=== PATIENT | male | born 2005 | race Caucasian/White ===

== ENCOUNTER 2023-11-20 07:20 | Emergency (ER) | payer BC, OTHER ==
[~2023-11-20] VITALS: Ht 185.4 cm; Wt 74.0 kg
[2023-11-20 08:10] VITALS: BP 159/92; PULSE 76; RESP 14; TEMP 98.3; O2SAT 97
[2023-11-20] MEDS: ONDANSETRON HCL 4 MG/2 ML VIAL IV ONE (08:26)
[2023-11-20] MEDS: SODIUM CHLORIDE 0.9% 1,000 ML IV ONE (08:26)
[2023-11-20] MEDS: HALOPERIDOL LACTATE 5 MG/ML INJ VIAL IM ONE (08:27)
[2023-11-20] MEDS ORDERED: ZOFR4T PO (09:23)
== END 2023-11-20 09:33 | disposition home or self-care (01) ==
LOC: ER 07:20
DX: R11.15 Cyclical vomiting syndrome unrelated to migraine (principal); R19.7 Diarrhea, unspecified; F12.10 Cannabis abuse, uncomplicated
CPT/HCPCS: 96361; 96372; 96374; 99284; J1630; J2405; J7030

== ENCOUNTER 2023-12-31 12:06 | Inpatient (IN) | payer BC ==
[~2023-12-31] VITALS: Ht 185.4 cm; Wt 77.0 kg
[~2023-12-31 12:06] MED LIST: ZOFR4T PO
[2023-12-31] MEDS: ONDANSETRON ODT 4 MG TAB PO ONE (13:33)
[2023-12-31] MEDS: SODIUM CHLORIDE 0.9% 1,000 ML IV ONE ×2 (13:37→14:48)
[2023-12-31 13:50] LABS: Basophils # (auto) 0.1 10 ^3/uL (0-0.2); Basophils % (auto) 0.4 % (0.0-2.0); Eosinophils # (auto) 0 10 ^3/uL (0-0.8); Eosinophils % (auto) 0.1 % (0.0-7.0); Hematocrit 47.6 % (41.0-53.0); Hemoglobin 16.4 g/dL (13.5-17.5); Lymphocytes # (auto) 1.6 10 ^3/uL (0.4-5.4); Mean Corpuscular Hemoglobin 33.1 pg (28.0-32.0); Mean Corpuscular Hgb Conc. 34.5 g/dL (32.0-36.0); Mean Corpuscular Volume 95.8 fL (80.0-100.0); Monocytes # (auto) 0.8 10 ^3/uL (0-1.3); Monocytes % (auto) 4.4 % (0.0-12.0); Neutrophils # (auto) 15.1 10 ^3/uL (1.6-8.6); Neutrophils % (auto) 86.1 % (37.0-80.0); Platelet Count (auto) 199 10^3/uL (140-450); Red Blood Cells 4.96 10^6/uL (4.5-5.90); Red Cell Distribution Width 12.9 % (11.8-14.3); White Blood Cell 17.5 10^3/uL (4.4-10.8)
[2023-12-31] MEDS: MORPHINE SULFATE 4 MG/ML SYR/VIAL IV ONE (13:50)
[2023-12-31 13:56] LABS: Chloride 110 mmol/L (98-107); Potassium 4.4 mmol/L (3.5-5.1); Sodium 143 mmol/L (136-145)
[2023-12-31 13:57] LABS: Anion Gap 9 (5-15); Calcium 10.8 mg/dL (8.7-10.4); Carbon Dioxide 24 mmol/L (20-30)
[2023-12-31 14:02] LABS: BUN/Creatinine Ratio 10.5 (10.0-20.0); Blood Urea Nitrogen 11 mg/dL (9-23); Glucose 131 mg/dL (74-106)
[2023-12-31 14:05] VITALS: PULSE 61; RESP 14; O2SAT 98
[2023-12-31] MEDS: LACTATED RINGER'S 1,000 ML IV ONE (15:00)
[2023-12-31] MEDS ORDERED: METOCLOPRAMIDE HCL 5MG/ml INJ 2ml VIAL IV PRN (16:30)
[2023-12-31] MEDS ORDERED: ONDANSETRON HCL 4 MG/2 ML VIAL IV PRN (16:30)
[2023-12-31] MEDS ORDERED: DOCUSATE SOD 100 MG CAP PO PRN (16:30)
[2023-12-31] MEDS ORDERED: ACETAMINOPHEN 325 MG TAB PO PRN (16:30)
[2023-12-31] MEDS ORDERED: HYDROmorphone HCL 2 MG/ML VL/or syr IV PRN (16:30)
[2023-12-31] MEDS: HYDROcodone-ACET 5/325MG TAB PO PRN (16:49)
[2023-12-31] MEDS ORDERED: FLUO40CA PO (18:46)
[2023-12-31] MEDS ORDERED: FLUO-470 PO (18:46)
[2023-12-31] MEDS ORDERED: ARIP10TA29 PO (18:46)
[2023-12-31] MEDS ORDERED: GUAN1TAB8 PO (18:51)
[2023-12-31 21:00] VITALS: BP 137/81; PULSE 68; RESP 22; TEMP 97.7; O2SAT 98
[2023-12-31] MEDS: SODIUM CHLOR 0.9% PF (SALINE LOCK) 10ML VIAL/SYR IV SCH (22:00)
[2024-01-01 04:44] LABS: Urine Bacteria None Seen /hpf (None Seen)
[2024-01-01 04:52] LABS: Urine Blood Negative /uL (Negative); Urine Clarity Clear (Clear); Urine Color Light-Yellow (Yellow); Urine Protein, UAD Negative (Negative); Urine Specific Gravity 1.013 (1.001-1.035); Urine Urobilinogen Normal (Negative); Urine WBC 2 /hpf (0 - 3)
[2024-01-01 05:05] LABS: Amphetamine Screen, Urine Neg (NEGATIVE); Barbiturate Scree,Urine Neg (NEGATIVE); Benzodiazephine Screen, Urine Neg (NEGATIVE); Cannabinoid Screen, Urine Pos (NEGATIVE); Cocaine Screen, Urine Neg (NEGATIVE); Opiate Scree,Urine Neg (NEGATIVE); Phencyclidine Screen, Urine Neg (NEGATIVE)
[2024-01-01 05:28] VITALS: BP 128/70; PULSE 73; RESP 18; TEMP 97.8; O2SAT 98
[2024-01-01 09:00] VITALS: BP 130/71; PULSE 66; RESP 18; TEMP 97.8; O2SAT 98
[2024-01-01] MEDS: ENOXAPARIN SOD 40 MG/0.4 ML SYRINGE SC SCH (10:00)
[2024-01-01 12:54] LABS: Basophils # (auto) 0 10 ^3/uL (0-0.2); Basophils % (auto) 0.3 % (0.0-2.0); Eosinophils # (auto) 0.1 10 ^3/uL (0-0.8); Eosinophils % (auto) 1.2 % (0.0-7.0); Hematocrit 44.8 % (41.0-53.0); Hemoglobin 15.5 g/dL (13.5-17.5); Lymphocytes # (auto) 3.2 10 ^3/uL (0.4-5.4); Mean Corpuscular Hemoglobin 33.4 pg (28.0-32.0); Mean Corpuscular Hgb Conc. 34.7 g/dL (32.0-36.0); Mean Corpuscular Volume 96.2 fL (80.0-100.0); Monocytes # (auto) 0.9 10 ^3/uL (0-1.3); Monocytes % (auto) 8.6 % (0.0-12.0); Neutrophils # (auto) 5.8 10 ^3/uL (1.6-8.6); Neutrophils % (auto) 57.9 % (37.0-80.0); Platelet Count (auto) 156 10^3/uL (140-450); Red Blood Cells 4.66 10^6/uL (4.5-5.90)
[2024-01-01 13:00] VITALS: BP 131/78; PULSE 67; RESP 18; TEMP 98.1; O2SAT 97
[2024-01-01 13:15] LABS: Albumin 4.3 g/dL (3.2-4.8); Alkaline Phosphatase 79 U/L (46-116); Anion Gap 6 (5-15); Aspartate Aminotransferase 9 U/L (13-40); BUN/Creatinine Ratio 8.9 (10.0-20.0); Bilirubin, Total 0.5 mg/dL (0.2-1.0); Blood Urea Nitrogen 8 mg/dL (9-23); Calcium 9.6 mg/dL (8.7-10.4); Carbon Dioxide 26 mmol/L (20-30); Chloride 109 mmol/L (98-107); Glucose 94 mg/dL (74-106); Lipase 29 U/L (12-53); Potassium 3.5 mmol/L (3.5-5.1); Sodium 141 mmol/L (136-145); Total Protein 6.7 g/dL (5.7-8.2)
[2024-01-01 13:17] LABS: Alanine Aminotransferase < 9 U/L (7-40)
== END 2024-01-01 15:30 | disposition home or self-care (01) | DRG 395 ==
LOC: ER 12:06 → OVERFLOW 16:25 → WEST WING 16:25
PROVIDERS: ADMIT Internal Medicine; ATTEND Internal Medicine
DX: R11.15 Cyclical vomiting syndrome unrelated to migraine (principal); F41.9 Anxiety disorder, unspecified; F32.A Depression, unspecified; F12.90 Cannabis use, unspecified, uncomplicated; D72.829 Elevated white blood cell count, unspecified
CPT/HCPCS: 36415; 80048; 80053; 80307; 81001; 83690; 85025; G0378; Q0162

== ENCOUNTER 2024-02-16 10:13 | Emergency (ER) | payer BC ==
[~2024-02-16] VITALS: Ht 182.9 cm; Wt 70.0 kg
[~2024-02-16 10:13] MED LIST changes: +ARIP10TA29 PO; +FLUO-470 PO; +FLUO40CA PO; +GUAN1TAB8 PO
[2024-02-16 11:06] VITALS: PULSE 17; RESP 17; O2SAT 96
[2024-02-16] MEDS: SODIUM CHLORIDE 0.9% 2,000 ML IV ONE (11:17)
[2024-02-16] MEDS: KETOROLAC TROMETH 30 MG/ML 1ML VIAL IV ONE (11:18)
[2024-02-16] MEDS: ONDANSETRON HCL 4 MG/2 ML VIAL IV ONE (11:18)
[2024-02-16 11:20] LABS: Albumin 5.1 g/dL (3.2-4.8); Alkaline Phosphatase 97 U/L (46-116); Anion Gap 12 (5-15); Aspartate Aminotransferase 11 U/L (13-40); BUN/Creatinine Ratio 16.1 (10.0-20.0); Blood Urea Nitrogen 20 mg/dL (9-23); Calcium 10.6 mg/dL (8.7-10.4); Carbon Dioxide 26 mmol/L (20-31); Chloride 97 mmol/L (98-107); Glucose 138 mg/dL (74-106); Potassium 3.1 mmol/L (3.5-5.1); Sodium 135 mmol/L (136-145)
[2024-02-16 11:21] LABS: Bilirubin, Total 1.3 mg/dL (0.2-1.0); Total Protein 7.9 g/dL (5.7-8.2)
[2024-02-16 11:24] LABS: Basophils # (auto) 0.1 10 ^3/uL (0-0.2); Basophils % (auto) 0.4 % (0.0-2.0); Eosinophils # (auto) 0 10 ^3/uL (0-0.8); Eosinophils % (auto) 0.1 % (0.0-7.0); Hematocrit 50.6 % (41.0-53.0); Hemoglobin 17.8 g/dL (13.5-17.5); Lymphocytes # (auto) 2.6 10 ^3/uL (0.4-5.4); Lymphocytes % (auto) 19.1 % (10.0-50.0); Mean Corpuscular Hgb Conc. 35.1 g/dL (32.0-36.0); Mean Corpuscular Volume 93.8 fL (80.0-100.0); Monocytes # (auto) 1.6 10 ^3/uL (0-1.3); Monocytes % (auto) 11.3 % (0.0-12.0); Neutrophils # (auto) 9.5 10 ^3/uL (1.6-8.6); Neutrophils % (auto) 69.1 % (37.0-80.0); Platelet Count (auto) 197 10^3/uL (140-450); Red Cell Distribution Width 12.7 % (11.8-14.3); White Blood Cell 13.7 10^3/uL (4.4-10.8)
[2024-02-16] MEDS: FAMOTIDINE (10MG/ML) 2ML VL IV ONE (11:28)
[2024-02-16 11:29] LABS: Alanine Aminotransferase < 9 U/L (7-40)
[2024-02-16] MEDS: METOCLOPRAMIDE HCL 5MG/ml INJ 2ml VIAL IV ONE (12:05)
[2024-02-16] MEDS: LORazepam 2MG/ML-1ML VIAL IV ONE (12:24)
[2024-02-16 13:36] VITALS: BP 131/87; PULSE 92; RESP 16; TEMP 98.4; O2SAT 97
[2024-02-16] MEDS ORDERED: METO-281 PO (13:42)
[2024-02-16] MEDS ORDERED: FAMO-161 PO (13:42)
[2024-02-16] MEDS: POTASSIUM CHL 20 Meq TABLET PO ONE (13:57)
== END 2024-02-16 13:43 | disposition home or self-care (01) ==
LOC: ER 10:13
DX: E87.8 Other disorders of electrolyte and fluid balance, not elsewhere classified (principal); R11.2 Nausea with vomiting, unspecified; F12.90 Cannabis use, unspecified, uncomplicated; Z79.899 Other long term (current) drug therapy
CPT/HCPCS: 36415; 74176; 80053; 82962; 83690; 85025; 96361; 96374; 96375; 99285; J1885; J2060; J2405; J2765; J3490; J7030